=== PATIENT | male | born 1955 | race Caucasian/White ===

== ENCOUNTER 2022-08-18 13:13 | Emergency (ER) | payer MEDICARE, OTHER, SELFPAY ==
--- NOTE | 2022-08-18 13:16 | ED.URI ---
HPI - URI/Sore Throat General Chief Complaint: Upper Respiratory Infection Stated Complaint: Cough/Chest Congestion Time Seen by Provider: 08/18/22 13:16 History of Present Illness HPI Narrative: Patient is a 66-year-old male who presents to urgent care with complaints of a harsh cough, chest congestion, rhinorrhea and postnasal drainage. Patient states he has had for approximately 2 weeks or more and seems to have gotten worse with some intermittent shortness of breath on ambulation. Patient denies any fevers, nausea, vomiting or ill exposures. No other acute complaints. No acute distress noted. Patient and spouse aware of the plan of care. Some parts of this dictation were generated by voice recognition software and may contain typographical and/or grammatical inaccuracies. Related Data Home Medications Medication Instructions Recorded Confirmed amantadine HCl 100 mg capsule mg 08/18/22 amlodipine 2.5 mg tablet mg 08/18/22 aspirin 81 mg tablet,delayed mg 08/18/22 release atorvastatin 80 mg tablet mg 08/18/22 carbidopa 25 mg-levodopa 100 mg tablet 08/18/22 tablet clopidogrel 75 mg tablet mg 08/18/22 isosorbide mononitrate 30 mg mg PO 08/18/22 tablet,extended release 24 hr sertraline 50 mg tablet mg 08/18/22 tamsulosin 0.4 mg capsule mg PO 08/18/22 Allergies Allergy/AdvReac Type Severity Reaction Status Date / Time No Known Allergies Allergy Verified 08/18/22 13:24 Review of Systems Review of Systems: CONSTITUTIONAL: Denies fever, chills, or sweats. EYES: Denies visual changes, redness, or discharge. ENT: Reports of congestion, rhinorrhea CARDIOVASCULAR: Denies chest pain, palpitations, or edema. RESPIRATORY: Reports of harsh persistent cough with intermittent dyspnea and chest congestion GASTROINTESTINAL: Denies abdominal pain, nausea, vomiting, or diarrhea. GENITOURINARY: Denies dysuria or hematuria. SKIN: Denies rash or itching. MUSCULOSKELETAL: Denies back pain, joint pain, or myalgia. NEUROLOGIC: Denies headache, numbness, or weakness. All other systems reviewed are negative, except as documented in HPI. PMFSH Comments At the time of my signature, I reviewed and agree with the nursing past medical, surgical, social, and family history. There is no relevant family history pertinent to the patient complaint. Exam Narrative: GENERAL: This is a well-nourished, well-developed patient, in no apparent distress. HEAD: normocephalic, atraumatic. EYES: PERRL. Sclera clear/white. Vision is grossly intact. EARS: External ears normal, auditory canals clear and without drainage, TMs normal without perforation. Hearing grossly intact. NOSE: External nose normal with no obvious nasal discharge, nares without redness, no rhinorrhea. THROAT: Mucous membranes moist, posterior pharynx clear. Moderate postnasal drainage NECK: Neck supple RESPIRATORY: Slightly diminished bibasilar with harsh persistent cough on deep breathing. SKIN: warm, intact with no suspicious lesions or rash, good texture and turgor. NEURO: awake, alert, and oriented to person, place and time. There were no obvious focal neurologic abnormalities. EXTREMITIES: No clubbing, cyanosis, or edema. Course Course Level of Care: Express Care Visit Vital Signs Vital signs: Vital Signs Temperature 98.9 F 08/18/22 13:20 Pulse Rate 95 08/18/22 13:20 Respiratory Rate 20 08/18/22 13:20 Blood Pressure 131/79 08/18/22 13:20 Pulse Oximetry 94 08/18/22 13:20 Oxygen Delivery Room Air 08/18/22 13:20 Temperature 98.9 F 08/18/22 13:20 Pulse Rate 95 08/18/22 13:20 Respiratory Rate 20 08/18/22 13:20 Blood Pressure 131/79 08/18/22 13:20 Pulse Oximetry 94 08/18/22 13:20 Oxygen Delivery Room Air 08/18/22 13:20 Reviewed Discharge Plan Discharge Clinical Impression: Bronchitis Patient Disposition: Home, Self-Care Condition: Stable Instructions: Antibiotic Form, Acute Bronchitis (ED)
[2022-08-18 13:20] VITALS: BP 131/79; PULSE 95; RESP 20; TEMP 37.2; O2SAT 94
== END 2022-08-18 14:09 | disposition home or self-care (01) ==
PROVIDERS: Emergency Provider Nurse Practitioner Family; PCP Hospitalist
DX: J40 Bronchitis, not specified as acute or chronic (principal); G20 Parkinson's disease; E78.00 Pure hypercholesterolemia, unspecified; I10 Essential (primary) hypertension; Z95.5 Presence of coronary angioplasty implant and graft
CPT/HCPCS: 99213; G0463